=== PATIENT | female | born 1940 | race Caucasian/White ===

== ENCOUNTER 2016-04-13 11:52 | Inpatient (IN) | payer MEDICARE, BC ==
[2016-04-07 09:56] VITALS: BMI 27.6
[~2016-04-13 11:52] MED LIST: LACTATED RINGERS 1,000 ML IV SCH; Pre Op ABX Message 1 EACH MISC MISCELLANE ONE
[2016-04-13] MEDS ORDERED: ALBUTEROL NEB (CONC) 2.5 MG/0.5 ML INHALATION STA (12:17)
[2016-04-13] MEDS ORDERED: LIDOCAINE 2% (PF) 20 MG/ML 10ML INHALATION STA (12:23)
[2016-04-13] MEDS ORDERED: LIDOCAINE 1% 20 ML VIAL (10MG/ML) FOR IV START INTRADERMA ONE (12:40)
[2016-04-13] MEDS ORDERED: ATROPINE SULFATE 0.4 MG/ML 1 ML VIAL IM ONE (12:42)
[2016-04-13] MEDS ORDERED: LIDOCAINE 1% INJ 10MG/ML (20 ML MDV) ONE (12:45)
[2016-04-13] MEDS ORDERED: GLYCOPYRROLATE 0.2 MG/ML 2 ML VIAL ONE (12:45)
[2016-04-13] MEDS ORDERED: MIDAZOLAM 2 MG/2 ML VIAL ONE (12:45)
[2016-04-13] MEDS ORDERED: LABETALOL 5 MG/ML VIAL MDV ONE (12:45)
[2016-04-13] MEDS ORDERED: KETAMINE 10 MG/ML 20 ML VIAL ONE (12:45)
[2016-04-13] MEDS ORDERED: PROPOFOL 10 MG/ML 20 ML VIAL IV ONE (12:45)
[2016-04-13] MEDS ORDERED: PROPOFOL 50 ML IV ONE (14:02)
[2016-04-13] MEDS ORDERED: PROPOFOL 500 MG in EMPTY BAG 1 BAG IV SCH (14:15)
[2016-04-13] MEDS ORDERED: NALOXONE 0.4 MG/ML 1 ML VIAL IV PRN (14:32)
--- NOTE | 2016-04-13 14:44 | XR ---
EXAMINATION TYPE: XR chest 1V portable DATE OF EXAM: 04/13/2016 2:38 PM COMPARISON: NONE HISTORY: Tube placement FINDINGS: Endotracheal tube is appropriately placed. NG tube is seen coursing towards the stomach. Basilar linear opacities are present as well as tiny effusions. Stable appearance of the cardio-mediastinal structures at this time. Pleural effusion unchanged. IMPRESSION: 1. Indwelling tubes and catheters as noted. 2.Basilar linear opacities are present as well as tiny effusions.
[2016-04-13] MEDS ORDERED: SODIUM CHLORIDE 0.9% 1,000 ML IV ONE (14:45)
[2016-04-13] MEDS ORDERED: SODIUM CHLORIDE 0.9% 1,000 ML IV SCH (14:45)
[2016-04-13 14:53] LABS: Glucose,Whole Blood 124 mg/dL (75-99)
[2016-04-13 15:03] LABS: Appearance,Urine Turbid (Clear); Bacteria,Urine Rare /hpf; Bilirubin,Urine Negative (Negative); Glucose,Urine (UA) Negative (Negative); Ketones,Urine Negative (Negative); Leukocyte Esterase,Urine Large (Negative); Mucus,Urine Many /hpf; Nitrite,Urine Positive (Negative); PH, Urine 5.5 (5.0-8.0); Particle Count 56347; Protein,Urine 1+ (Negative); RBC,Urine 30 /hpf (0-5); Specific Gravity,Urine 1.018 (1.001-1.035); UA Billing (MACRO vs. MICRO) MICRO; Urobilinogen,Urine <2.0 mg/dL (<2.0); WBC,Urine >182 /hpf (0-5)
[2016-04-13 15:17] VITALS: TEMP 98
[2016-04-13 15:56] LABS: Basophils # (A) 0.1 k/uL (0-0.2); Basophils % (A) 1 %; CH 28.5; CHCM 32.3; Eosinophils # (A) 0.1 k/uL (0-0.7); Eosinophils % (A) 1 %; HCT 37.3 % (34.0-46.0); HDW 2.71; HGB 11.9 gm/dL (11.4-16.0); Luc # (Auto) 0.09; Luc % (Auto) 1; Lymphocytes % (A) 9 %; MCH 28.2 pg (25.0-35.0); MCHC 31.9 g/dL (31.0-37.0); MCV 88.5 fL (80.0-100.0); Mean Platelet Volume 7.4; Monocytes # (A) 0.5 k/uL (0-1.0); Monocytes % (A) 4 %; Neutrophils # (A) 9.3 k/uL (1.3-7.7); Neutrophils % (A) 85 %; RBC 4.22 m/uL (3.80-5.40); RDW 13.5 % (11.5-15.5); WBC (Perox) 11.61
[2016-04-13] MEDS ORDERED: IPRATROPIUM 0.5 MG/2.5 ML NEBU INHALATION SCH (16:00)
[2016-04-13 16:06] LABS: Partial Thromboplastin Time 23.1 sec (22.0-30.0); Prothrombin Time 10.3 sec (9.0-12.0)
[2016-04-13] MEDS ORDERED: LORazepam 2 MG/ML SYRINGE IV PRN ×2 (16:10)
[2016-04-13 16:13] LABS: ALT 33 U/L (9-52); AST 17 U/L (14-36); Alkaline Phosphatase 63 U/L (38-126); Anion Gap 5 mmol/L; Blood Urea Nitrogen 12 mg/dL (7-17); Calcium 8.4 mg/dL (8.4-10.2); Carbon Dioxide 30 mmol/L (22-30); Chloride 103 mmol/L (98-107); Glucose 103 mg/dL (74-99); Non-African American GFR(MDRD) >60 (>60 ml/min/1.73 sqM); Phosphorous 4.2 mg/dL (2.5-4.5); Potassium 4.8 mmol/L (3.5-5.1); Sodium 138 mmol/L (137-145); Total Bilirubin 0.5 mg/dL (0.2-1.3); Total Protein 5.9 g/dL (6.3-8.2)
[2016-04-13] MEDS: IPRATROPIUM-ALBUTEROL 3 ML NEB INHALATION SCH ×2 (17:01→18:49)
[2016-04-13 18:06] VITALS: RESP 23
[2016-04-13 18:16] VITALS: BP 166/69
[2016-04-13 18:57] VITALS: PULSE 93
--- NOTE | 2016-04-13 19:04 | HP ---
DATE OF ADMISSION: This is a 75-year-old female who underwent bronchoscopy today. I did the procedure myself. She had an abnormal chest x-ray and CAT scan, which revealed a right hilar mass/right infrahilar mass. Today on bronchoscopy, she had a lesion that was obstructing the right lower lobe bronchus. Endobronchial biopsies, brushes, and washes were done in this area. She seemed to tolerate the procedure very well. Subsequent to that after I had bronchoscopy suite and spoke to the patient's , I was called by one of the nurses to say that the patient was apparently not breathing very well. Became somewhat somnolent and lethargic and with hypercarbic. Apparently anesthesia was called and they immediately intubated her. I do not believe they attempted to use any BiPAP or noninvasive ventilation or even attempted to use any Narcan to reverse the effects of the narcotics that she received. Anyway, I arranged for her bed in the ICU and she was transferred there. Initially she had some issues with hypotension on the ventilator. More recently she stabilized out. Currently, she is off sedation. We are going to get some weaning parameters and see whether or not we can extubate the patient. We will also do rapid shallow breathing index and a cuff leak. The respiratory therapist attempted a number of times and get a blood gas and apparently they could not. We did start her on some IV fluids and some updrafts. The patient was admitted to Dr. Arthur's surface. Her past medical history is positive for COPD, abnormal chest x-ray and CAT scan suggesting a bronchogenic carcinoma and also hypertension. Her home medications included: 1. Multivitamins. 2. Metoprolol. 3. Neurontin. 4. Symbicort. 5. Updrafts with albuterol and Atrovent. ALLERGIES: LATEX AND CIPROFLOXACIN. Surgical history is mostly remote. Social history is positive for previous heavy tobacco use. Review of systems cannot be obtained at the current time, she is currently ventilated but prior to she had no complaints. I did take the time to explain all the risks of procedure to the patient. She seemed to understand. She realized that sometimes complications can occur such as bleeding, infection, pneumothorax and respiratory failure. Again, I believe the respiratory failure was in fact related to excessive sedatives and other medications given to her by anesthesia and the FILLER SPREADER at the time of the procedure. CURRENT VITAL SIGNS: Temperature 98.8, heart rate 70, respiratory rate 20, blood pressure 113/58, mean 76, saturations are 97% on 40% FiO2 and 5 of PEEP. Appears comfortable. Propofol is off. HEENT examination is grossly unremarkable. She has an orally placed endotracheal tube and NG tube. NECK: Supple. Cardiovascular examination regular rhythm and rate. Heart rate 70. Lungs reveal a few scattered rhonchi. No wheezes or crackles. ABDOMEN: Soft. EXTREMITIES: Intact. Currently, she is on assist control mode, rate of 20, tidal volume 400, FiO2 of 40% and 5 of PEEP. Blood gases cannot be obtained. Her saturations are 97%. Her end tidal CO2 is between 33 and 35. She is getting an IV of 0.9 at 75 mL an hour. Her white count is 11. Hemoglobin, 11.9 at hematocrit 37.3. Platelet count normal. Electrolytes are all normal. Sugar was 103. Her liver function tests were normal. Her chest x-ray was not too remarkable save for some very mild bibasilar atelectasis. Urine suggests the possibility of a bladder infection, although she did not really have any prebronchoscopy complaints of such. Current medications include: 1. Updrafts with albuterol and Atrovent. 2. Chlorhexidine. 3. Ativan p.r.n. 4. Narcan p.r.n. 5. Protonix for GI prophylaxis. 6. Propofol, which is currently ( ) at 0.9 IV at 75 mL an hour. ASSESSMENT: 1. Acute respiratory failure, subsequent to a bronchoscopy, which may relate to excessive sedative hypnotic narcotic. 2. 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 3. Chronic obstructive pulmonary disease. 4. Hypertension. 5. Previous heavy tobacco use. 6. Possible bladder infection. PLAN: The patient's sedation will be held. We will use some Ativan sparingly. We will do some weaning parameters. We will do a cuff leak test. If she passes everything we will go ahead and extubate the patient. The is adamant about the patient being discharged tonight. We will watch the patient and make sure the patient tolerates extubation and if everything is stable we will go ahead and discharge her. No additional recommendations are made.
--- NOTE | 2016-04-13 19:37 | DS ---
DATE OF ADMISSION: 04/13/2016 DATE OF DISCHARGE: 04/13/2016 Diagnoses include: 1. Post-bronchoscopy respiratory failure requiring brief intubation and mechanical ventilation, likely secondary to sedatives, hypnotics and narcotics used during conscious sedation. 2. Status post bronchoscopy for right hilar/right infrahilar mass; rule out bronchogenic carcinoma. 3. History of hypertension. 4. History of chronic obstructive pulmonary disease. 5. History of previous tobacco use. The patient can be discharged home on a regular diet. No new medications will be provided this patient. The patient should follow up with her primary doctor, Dr. Barnhart. The patient will be discharged from the unit when it is safe for her to be discharged. She has been successfully extubated, and we want her to stay for a period of time so we can observe her post extubation to make sure she does not have any complications such as recurrent respiratory failure, post-extubation stridor, etc. Unfortunately, her has been unreasonable and is adamant about discharging her home, even to the point of threatening leaving AGAINST MEDICAL ADVICE. I have asked the nurse Ramona Mcmanus to document all of this. The patient had a bronchoscopy performed by myself today. Everything went well during the bronchoscopy, and we did endobronchial biopsies, brushes and washes in the right lower lobe. She had a large obstructing polyp-like mass in the right lower lobe. After the procedure, she seemed okay initially. I went out to the waiting room and spoke to her . He seemed pleased with the procedure, and I did actually give him a picture of the lesion in the right lower lobe. I explained to him that we will wait for the biopsy results and then make additional recommendations. Subsequent to that, I left the area and was called by one of the nurses from the postoperative area to say that the patient was lethargic and somnolent and had some respiratory difficulties. Before I had a chance to give my input about what I would want done, Anesthesia apparently intubated the patient without calling the ICU, and they transported the patient to the ICU. I was able to call the ICU in advance and give a brief verbal update and some information about the patient. At that time I spoke to the admitting nurse in the ICU, Ramona Mcmanus. Once the patient got to the ICU, I gave orders for the nurse. These included vent settings, IV fluids, updrafts, GI prophylaxis, lab work, x-rays, blood gases, waveform capnography, etc. Subsequent to all of this, and once the patient was stabilized, receiving fluids and some propofol, sedation was held. The patient had been placed on CPAP 5, pressure support 5. Weaning parameters were done. She had a successful cuff leak test. I spoke to both the nurse and the respiratory therapist at this time, and we decided to go ahead and extubate the patient. She did well post extubation. I have asked the nurse to observe her for some period of time in the ICU to make sure that she is stable, and after a period of time of observation, when her vital signs are stable and she does not appear to have any respiratory difficulty, she could be discharged. Again, as I mentioned above, her is adamant about taking her home at a certain time and even threatened taking her out of the hospital AGAINST MEDICAL ADVICE. I told the nurse that the patient's safety was first and foremost. I will not discharge her until we are convinced that the patient is safe to be discharged. I have asked the nurse to document all of this. Most of this has been documented in my H&P and my discharge summary. No additional recommendations are made. Prognosis is guarded, given the lesion found on bronchoscopy. Additional recommendations and suggestions are forthcoming. Medications, labs, x-rays and so forth have all been reviewed.
[2016-04-13] MEDS ORDERED: CHLORHEXIDINE GLUCONATE 15 ML CUP MUCOUS MEM SCH (21:00)
--- NOTE | 2016-04-13 21:16 | PCN ---
DATE OF PROCEDURE: PROCEDURE: Bronchoscopy, airway examination and brushes, right lower lobe, biopsies, endobronchial, right lower lobe, and pool cytology, right lower lobe. PREOPERATIVE DIAGNOSIS: Lung cancer. POSTOPERATIVE DIAGNOSIS: Lung cancer. There was informed consent. There was universal timeout. The MOTION PICTURE PROJECTIONIST APPRENTICE provided IV conscious sedation. After the patient was adequately sedated and being fully monitored, the bronchoscope was inserted through the right nostril. It passed through the right nasopharynx into the oropharynx. The hypopharynx was identified and topicalized. The hypopharyngeal structures, including the anterior commissure, true cords, false cords, arytenoids, piriform sinuses, right and left valleculae, all appeared relatively normal. After topicalization, the bronchoscope was pushed through the glottic opening into the trachea. Trachea appeared normal. Tracheal elpidio was sharp. The right and left mainstem were topicalized. I evaluated the left side first. The left upper lobe and its 2 segments, the lingula and its 2 segments, and the left lower lobe and its 4 segments all were normal. There were no endobronchial masses or tumors. No secretions. No bleeding. The bronchial mucosa appeared normal. On the right side though, the right upper lobe and its 3 segments were normal, as was the right middle lobe and its 2 segments. Of note was the fact there was a large obstructing mass in the right lower lobe. A picture was taken. There were no additional masses or tumors noted. The mucosa around the mass looked a little ( ) it was erythematous and hyperemic. It was not bleeding initially. Next, multiple endobronchial biopsies were performed of the lesion. It did bleed a little bit, but it stopped spontaneously. Next, brushes were performed of the lesion. Finally there was exfoliative cytology collected with pool cytology. The patient tolerated the procedure well. She will be recovered. I will talk to the family about the findings.
[2016-04-14] MEDS ORDERED: PANTOPRAZOLE 40 MG/10 ML VIAL IV SCH (09:00)
== END 2016-04-13 20:51 | disposition home or self-care (01) | DRG 167 ==
LOC: ORWHC2ENDO 11:52 → 6ICU 13:04 → ORWHC2ENDO 14:16
PROVIDERS: ADMIT Internal Medicine Critical Care Medicine; ATTEND Internal Medicine Critical Care Medicine
PROC: 0BBF8ZX Excision of Right Lower Lung Lobe, Via Natural or Artificial Opening Endoscopic, Diagnostic (ICD-10-PCS; principal; 2016-04-13 13:00)
PROC: 0BH18EZ Insertion of Endotracheal Airway into Trachea, Via Natural or Artificial Opening Endoscopic (ICD-10-PCS; principal; 2016-04-13 13:00)
PROC: 5A1935Z Respiratory Ventilation, Less than 24 Consecutive Hours (ICD-10-PCS; principal; 2016-04-13 13:00)
DX: J95.822 Acute and chronic postprocedural respiratory failure (principal); C34.90 Malignant neoplasm of unspecified part of unspecified bronchus or lung; J44.9 Chronic obstructive pulmonary disease, unspecified; T40.605A Adverse effect of unspecified narcotics, initial encounter; T42.75XA Adverse effect of unspecified antiepileptic and sedative-hypnotic drugs, initial encounter; I10 Essential (primary) hypertension; Z87.891 Personal history of nicotine dependence; Z79.899 Other long term (current) drug therapy; Z88.1 Allergy status to other antibiotic agents; Z91.040 Latex allergy status
CPT/HCPCS: 31623; 31624; 31625; 71010; 80053; 81001; 83735; 84100; 85025; 85610; 85730; 87077; 87086; 87186; 88104; 88108; 88305; 88341; 88342; 94002; 94640; 94770; 99153